=== PATIENT | female | born 1965 | race African-American/Black ===

== ENCOUNTER 2017-06-18 00:16 | Emergency (ER) | payer SELFPAY ==
[~2017-06-18] VITALS: Ht 165.1 cm; Wt 95.0 kg
[2017-06-18 01:14] VITALS: BP 105/71
== END 2017-06-18 02:10 | disposition left against medical advice (07) ==
LOC: ER 00:16
DX: Z53.21 Procedure and treatment not carried out due to patient leaving prior to being seen by health care provider (principal)